=== PATIENT | male | born 1990 | race Caucasian/White ===

== ENCOUNTER 2016-11-19 15:50 | Emergency (ER) | payer SELFPAY ==
[~2016-11-19] VITALS: Ht 177.8 cm; Wt 65.0 kg
[2016-11-19 15:52] VITALS: BP 156/93; PULSE 61; RESP 14; TEMP 98.1; O2SAT 98
== END 2016-11-19 18:21 | disposition left against medical advice (07) ==
LOC: NED 15:50
DX: R68.89 Other general symptoms and signs (principal)
CPT/HCPCS: 99281